=== PATIENT | female | born 1945 | race Caucasian/White ===

== ENCOUNTER 2019-06-11 19:40 | Observation (INO) ==
--- NOTE | 2019-06-11 20:01 | ED.ABDFE ---
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 Hx of PVD with stents, CAD stents,COPD, Hypertension. Recent cardiac cath 2 weeks ago but no intervention needed. Been using a [employer] to get around since Cardiac cath. - COVID-19 Coronavirus risk:travel/contact w/high risk person: No Has patient experienced Coronavirus symptoms: No - Source History Provided: Patient - Mode of arrival Mode of Arrival: EMS - Timing Came on: Suddenly - Duration Duration: Constant Duration: Minutes - Location Location: Periumbilical - Severity Severity: Moderate - Quality Quality: Burning - Modifying Improving Factors: Lying Still - Associated signs and symptoms Associated Signs and Symptoms: Diarrhea - Time seen Time Seen by Provider: 06/11/19 19:50 PMH - PMH Past Medical History: COPD, Coronary Artery Disease, Dyslipidemia, Hypertension Past Surgical History: Yes Surgical History: Appendectomy, Cholecystectomy, Hysterectomy, Ortho Surgery - Family History Family Medical History: Diabetes Mellitus, Cancer, Coronary Artery Disease, Heart Failure, Hypertension - Social History Does patient currently use any type of tobacco product: Yes Have you used tobacco products in the last 12 months: Yes Type of Tobacco Use: Cigarettes Do you use any recreational Drugs:: No ROS - Review of Systems Constitutional: No Symptoms Reported Eyes: No Symptoms Reported ENTM: No Symptoms Reported Respiratoy: No Symptoms Reported Cardiovascular: No Symptoms Reported Gastrointestinal/Abdominal: Abdominal Pain, Diarrhea Genitourinary: No Symptoms Reported Neurological: No Symptoms Reported Musculoskeletal: No Symptoms Reported Integumentary: No Symptoms Reported Hematologic/Lymphatic: No Symptoms Reported Endocrine: No Symptoms Reported Psychiatric: Depression All Other Systems: Reviewed and Negative PE - General Limitations: No Limitations General Appearance: Alert, In No Apparent Distress - Head Head Exam: Normal Inspection - Eyes Eye exam: Normal Appearance, PERRL, EOMI - ENT ENT Exam: Normal Exam - Neck Neck Exam: Normal Inspection - Chest Chest Inspection: Normal Inspection - Respiratory Respiratory Exam: Normal Lung Sounds Bilat Respiratory Exam: Bilateral Clear to Auscultation - Cardiovascular Cardiovascular Exam: Regular Rate - Abdominal Exam Abdominal Exam: Normal Inspection, Normal Bowel Sounds, Soft, Tenderness (epigastric). negative: Distention, Guarding Abdominal Tenderness: Epigastrium - Rectal Rectal Exam: Deferred - Back Back Exam: Normal Inspection - Extremeties Extremities Exam: Normal Inspection, Full ROM - External Exam: Female: Deferred : Speculum Exam (Female): Deferred : Bimanual Exam (female): Deferred - Neurologic Neurological Exam: Alert, Oriented X3, CN II-XII Intact - Psychiatric Psychiatric Exam: Depressed - Skin Skin Exam: Intact, Normal Color - Vital Signs Vitals: Temperature 96.9 F Pulse Rate 83 Respiratory Rate 18 Blood Pressure [Left Arm] 132/70 Blood Pressure [Right Arm] 126/58 Blood Pressure 98/53 O2 Sat by Pulse Oximetry 94 Course - Treatment Treatment: 2049: patient wanting to sign out to go to [facility], wanted something for dyspnea (after Nebulizer) sats good, wanted something done for her leg pain from cardiac cath a few days ago. Labs came back and unable to get CT with contrast due to renal functions. Ultrasound apparently not available here will try to transfer to [facility] where her cardiac cath was done. 0015: ultrasound came in to do aorta but not right femoral Ultrasound. If aorta stable will admit for Ultrasound in am as well as diarrhea with elevated WBC. 0100: case discussed with Chaka Galaviz observation ROR - Labs Reviewed Result Diagrams: 06/11/19 20:18 06/11/19 20:18 - XRAY XRAY Interpreted by: Radiologist - Labs Reviewed Laboratory: WBC 16.8 X10^3/uL (3.6-10.0) H 06/11/19 20:18 RBC 4.69 X10^6/uL (3.5-5.4) 06/11/19 20:18 Hgb 15.0 g/dL (12.0-16.0) 06/11/19 20:18 Hct 42.7 % (36.0-47.0) 06/11/19 20:18 MCV 91.1 fL (80.0-100.0) 06/11/19 20:18 MCH 31.9 pg (27.0-34.0) 06/11/19 20: MCHC 35.1 g/dL (33.0-35.0) H 06/11/19 20:18 RDW 13.4 % (11.6-16.5) 06/11/19 20:18 Plt Count 289 X10^3/uL (150.0-450.0) 06/11/19 20: Plt Count Comment Adequate (ADEQUATE) 06/11/19 20:18 MPV 8.2 fL (7.4-11.0) 06/11/19 20:18 Neut % (Auto) 92.2 % (42.0-75.0) H 06/11/19 20:18 Lymph % (Auto) 5.0 % (21.0-51.0) L 06/11/19 20:18 Yates % (Auto) 0.4 % (0.0-13.0) 06/11/19 20:18 Eos % (Auto) 1.8 % (0.9-2.9) 06/11/19 20:18 Baso % (Auto) 0.6 % (0.2-1.0) 06/11/19 20:18 Neut # (Auto) 15.5 x10^3/uL (2.2-4.8) H 06/11/19 20:18 Lymph # (Auto) 0.8 X10^3/uL (1.3-2.9) L 06/11/19 20:18 Yates # (Auto) 0.1 x10^3/uL (0.3-0.8) L 06/11/19 20:18 Eos # (Auto) 0.3 x10^3/uL (0.0-0.2) H 06/11/19 20:18 Baso # (Auto) 0.1 X10^3/uL (0.0-0.1) 06/11/19 20:18 Absolute Nucleated RBC 0.0 /100WBC 06/11/19 20:18 Total Counted 100 06/11/19 20:18 Neutrophils % (Manual) 90 % (39-76) H 06/11/19 20:18 Band Neutrophils % 4 % (0-10) 06/11/19 20:18 Lymphocytes % (Manual) 4 % (13-43) L 06/11/19 20:18 Monocytes % (Manual) 2 % (4-9) L 06/11/19 20:18 Plt Morphology Comment Normal (NORMAL) 06/11/19 20:18 RBC Morphology Normal (NORMAL) 06/11/19 20:18 Sodium 139 mmol/L (136-145) 06/11/19 20:18 Corrected Sodium 140 mmol/L (136-145) 06/11/19 20:18 Potassium 3.6 mmol/L (3.5-5.1) 06/11/19 20:18 Chloride 101 mmol/L (98-107) 06/11/19 20:18 Carbon Dioxide 26.7 mmol/L (21-32) 06/11/19 20:18 BUN 27 mg/dL (7-18) H 06/11/19 20:18 Creatinine 1.45 mg/dL (0.55-1.02) H 06/11/19 20:18 Est GFR (MDRD) Af Amer 46 (>60) L 06/11/19 20:18 Est GFR (MDRD) Non-Af 38 (>60) L 06/11/19 20:18 Glucose 133 mg/dL (65-99) H 06/11/19 20:18 Calcium 8.9 mg/dL (8.5-10.1) 06/11/19 20:18 Corrected Calcium TNP 06/11/19 20:18 Total Bilirubin 0.40 mg/dL (0.2-1.0) 06/11/19 20:18 AST 12 Units/L (15-37) L 06/11/19 20:18 ALT 16 Units/L (12-78) 06/11/19 20:18 Alkaline Phosphatase 83 Units/L (46-116) 06/11/19 20:18 Creatine Kinase 67 Units/L (26-192) 06/11/19 20:18 CK-MB (CK-2) < 1.0 ng/mL (0-4.0) 06/11/19 20:18 CK/CKMB % Calc 1.5 % (<4) 06/11/19 20:18 Troponin I < 0.02 ng/mL (0-1.5) 06/11/19 20:18 Total Protein 7.2 g/dL (6.4-8.2) 06/11/19 20:18 Albumin 3.7 g/dL (3.4-5.0) 06/11/19 20:18 Globulin 3.5 g/dL (2.5-4.5) 06/11/19 20:18 Albumin/Globulin Ratio 1.1 Ratio (1.1-2.1) 06/11/19 20:18 - XRAY Xray Findings: Aortic ultra sound: IMPRESSION Infrarenal abdominal aortic ectasia, measuring maximally 3.5 centimeters transversely, although positioning of the transition may be accentuating this, as other measurements show a maximum AP diameter of 2.5 centimeters. No evidence of dissection seen sonographically. Follow-up with vascular surgery in surveillance as indicated. (ELISEO SOARES) Opioid - Opioid Risk Tool Age (Eliseo box if 16-45): No History of Preadolescent Sexual Abuse: No Total: 0 Total Score Risk Category: Low Risk - Diagnosis Discharge Problem: Postprocedural pain of extremity following cardiac catheterization Abdominal pain Qualifiers: Abdominal location: periumbilical Qualified Code(s): R10.33 - Periumbilical pain Diarrhea Qualifiers: Diarrhea type: unspecified type Qualified Code(s): R19.7 - Diarrhea, unspecified - Discharge Plan Condition: Stable - Follow ups/Referrals Follow ups/Referrals: SHAUN BURT [Primary Care Provider] - 3 days - Instructions
[2019-06-11 20:03] VITALS: BMI 23.5
[2019-06-11] MEDS ORDERED: NS 500 ML IV 1,000 ML IV ONE (20:05)
[2019-06-11] MEDS ORDERED: XOPENEX 1.25 MG/3 ML NEBULE NEB ONE (20:28)
[2019-06-11 20:32] LABS: BASOPHILS # (AUTO) 0.1 X10^3/uL (0.0-0.1); BASOPHILS % (AUTO) 0.6 % (0.2-1.0); EOSINOPHILS # (AUTO) 0.3 x10^3/uL (0.0-0.2); EOSINOPHILS % (AUTO) 1.8 % (0.9-2.9); HEMATOCRIT 42.7 % (36.0-47.0); LYMPHOCYTES # (AUTO) 0.8 X10^3/uL (1.3-2.9); MEAN CORPUSCULAR HEMOGLOBIN 31.9 pg (27.0-34.0); MEAN CORPUSCULAR HGB CONC 35.1 g/dL (33.0-35.0); MEAN CORPUSCULAR VOLUME 91.1 fL (80.0-100.0); MEAN PLATELET VOLUME 8.2 fL (7.4-11.0); MONOCYTES # (AUTO) 0.1 x10^3/uL (0.3-0.8); MONOCYTES % (AUTO) 0.4 % (0.0-13.0); NEUTROPHILS # (AUTO) 15.5 x10^3/uL (2.2-4.8); NEUTROPHILS % (AUTO) 92.2 % (42.0-75.0); PLATELET COUNT 289 X10^3/uL (150.0-450.0); RED BLOOD COUNT 4.69 X10^6/uL (3.5-5.4); RED CELL DISTRIBUTION WIDTH 13.4 % (11.6-16.5); WHITE BLOOD COUNT 16.8 X10^3/uL (3.6-10.0)
[2019-06-11 20:46] LABS: BLOOD UREA NITROGEN 27 mg/dL (7-18); CALCIUM 8.9 mg/dL (8.5-10.1); CARBON DIOXIDE 26.7 mmol/L (21-32); CHLORIDE 101 mmol/L (98-107); COR NA(FOR HYPERGLY) 140 mmol/L (136-145); CREATININE 1.45 mg/dL (0.55-1.02); SODIUM 139 mmol/L (136-145); TROPONIN I < 0.02 ng/mL (0-1.5); eGFR NON BLACK RACES 38 (>60)
[2019-06-11 20:51] LABS: ALANINE AMINOTRANSFERASE 16 Units/L (12-78); ALBUMIN 3.7 g/dL (3.4-5.0); ALKALINE PHOSPHATASE 83 Units/L (46-116); ASPARTATE AMINO TRANSFERASE 12 Units/L (15-37); CKMB % 1.5 % (<4); CREATINE KINASE 67 Units/L (26-192); CREATINE KINASE MB < 1.0 ng/mL (0-4.0); TOTAL PROTEIN 7.2 g/dL (6.4-8.2)
[2019-06-11 20:54] LABS: BAND NEUTROPHILS % 4 % (0-10); PLATELET MORPHOLOGY COMMENT NORMAL (NORMAL)
[2019-06-11] MEDS ORDERED: TORADOL 60 MG VIAL IVP ONE (21:03)
[2019-06-11] MEDS ORDERED: TORADOL 30 MG VIAL ONE (21:15)
--- NOTE | 2019-06-12 00:43 | US ---
Ultrasound abdomen aortaIndication: History of aortic aneurysmCOMPARISONRadiograph from the same day. CT angiogram chest from April 21, 2019Technique: Dynamic grayscale, color and spectral Doppler imaging through the abdomen, focusing on the aortaFINDINGSMeasurements are as follows:Aorta proximal: 1.8 x 2.3 centimeters (AP, trans)Aorta mid: 2.0 x 2.5 centimeters (AP, trans)Aorta distal 2.5 by 2.5 to 3.5 centimeters (AP, trans). The transverse diameter shows variability depending on positioning of the transducer. No dissection is seen.Study is moderately technically limited due to bowel gas.IMPRESSIONInfrarenal abdominal aortic ectasia, measuring maximally 3.5 centimeters transversely, although positioning of the transition may be accentuating this, as other measurements show a maximum AP diameter of 2.5 centimeters. No evidence of dissection seen sonographically. Follow-up with vascular surgery in surveillance as indicated.Electronically signed by: CLEOPATRA BRO (June 12, 2019 00:42:01)
[2019-06-12] MEDS ORDERED: DEMEROL INJ IVP PRN ×2 (01:08→09:33)
[2019-06-12] MEDS ORDERED: PROVENTIL NEB TX 0.083% 2.5MG/ 3ML NEB PRN (01:14)
[2019-06-12] MEDS ORDERED: DEMEROL INJ IVP ONE (01:37)
[2019-06-12] MEDS ORDERED: DEMEROL INJ ONE (01:43)
[2019-06-12] MEDS ORDERED: NICOTINE PATCH TD ONE (02:12)
[2019-06-12] MEDS: NICOTINE PATCH TD SCH ×2 (02:30→09:21)
[2019-06-12 03:07] LABS: BILIRUBIN,URINE NEGATIVE (NEGATIVE); BLOOD/HEMOGLOBIN,URINE 1+ (NEGATIVE); GLUCOSE, URINE NEGATIVE (NEGATIVE); KETONES,URINE NEGATIVE (NEGATIVE); LEUKOCYTE ESTERASE ,URINE 1+ (NEGATIVE); NITRITES,URINE NEGATIVE (NEGATIVE); PROTEIN,URINE 1+ (NEGATIVE); UROBILINOGEN,URINE 1+ (NORMAL)
[2019-06-12 03:10] LABS: APPEARANCE,URINE CLEAR (CLEAR); BACTERIA,URINE TRACE /HPF (NEGATIVE); COLOR,URINE YELLOW (YELLOW); HYALINE CASTS, URINE FEW /LPF (NEGATIVE); RBC,URINE NONE SEEN /HPF (0-3); SQUAMOUS EPITHELIAL CELL,UR FEW /HPF (NEGATIVE)
[2019-06-12 03:11] LABS: MUCUS,URINE FEW /HPF (NEGATIVE)
[2019-06-12 05:10] LABS: BASOPHILS % (AUTO) 0.1 % (0.2-1.0); EOSINOPHILS % (AUTO) 0.1 % (0.9-2.9); HEMATOCRIT 37.2 % (36.0-47.0); LYMPHOCYTES % (AUTO) 7.1 % (21.0-51.0); MEAN CORPUSCULAR HEMOGLOBIN 31.8 pg (27.0-34.0); MEAN CORPUSCULAR HGB CONC 34.8 g/dL (33.0-35.0); MEAN CORPUSCULAR VOLUME 91.4 fL (80.0-100.0); MEAN PLATELET VOLUME 8.9 fL (7.4-11.0); MONOCYTES # (AUTO) 0.7 x10^3/uL (0.3-0.8); MONOCYTES % (AUTO) 4.8 % (0.0-13.0); NEUTROPHILS # (AUTO) 11.9 x10^3/uL (2.2-4.8); NEUTROPHILS % (AUTO) 87.9 % (42.0-75.0); PLATELET COUNT 229 X10^3/uL (150.0-450.0); RED BLOOD COUNT 4.07 X10^6/uL (3.5-5.4); RED CELL DISTRIBUTION WIDTH 13.1 % (11.6-16.5); WHITE BLOOD COUNT 13.6 X10^3/uL (3.6-10.0)
[2019-06-12 05:12] LABS: CALCIUM 8.4 mg/dL (8.5-10.1); CARBON DIOXIDE 26.3 mmol/L (21-32); CREATININE 1.51 mg/dL (0.55-1.02)
[2019-06-12 05:21] LABS: HEMOGLOBIN 12.9 g/dL (12.0-16.0)
[2019-06-12 08:32] LABS: MAGNESIUM 1.9 mg/dL (1.7-2.9)
--- NOTE | 2019-06-12 08:33 | DR.H&P ---
H&P History & Physical for Day of: H&P Date: 06/12/19 Allergies Allergies Allergy/AdvReac Type Severity Reaction Status Date / Time codeine AdvReac Verified 06/12/19 02:47 Past Medical History Past Medical History: COPD, Coronary Artery Disease, Dyslipidemia and Hypertension Past Surgical History Surgical History: Angioplasty/Stents, Appendectomy, Cholecystectomy, Hysterectomy and Ortho Surgery Family History Family Medical History: Diabetes Mellitus, Cancer, Coronary Artery Disease, Heart Failure and Hypertension Social History Does patient currently use any type of tobacco product: Yes Have you used tobacco products in the last 12 months: Yes Type of Tobacco Use: Cigarettes Does any household member use tobacco: No Alcohol Use: None Drug Use: None Medications Home Medications: codeine Adverse Reaction (Verified 06/12/19 02:47) CONTINUE taking the following medications albuterol sulfate 1 inh INHALATION PRN PRN 06/11/19 [History] ezetimibe 10 mg PO DAILY 06/11/19 [History] fluticasone propion-salmeterol 1 inh INHALATION DAILY 06/11/19 [History] lisinopril 5 mg PO DAILY 06/11/19 [History] metoprolol succinate 25 mg PO DAILY 06/11/19 [History] omeprazole 40 mg PO DAILY 06/11/19 [History] sucralfate 1 g PO TID 06/11/19 [History] tramadol 50 mg PO TID 06/11/19 [History] Labs Result Diagrams: 06/12/19 04:05 06/12/19 04:05 Labs: Laboratory WBC 13.6 X10^3/uL (3.6-10.0) H 06/12/19 04:05 RBC 4.07 X10^6/uL (3.5-5.4) 06/12/19 04:05 Hgb 12.9 g/dL (12.0-16.0) D 06/12/19 04:05 Hct 37.2 % (36.0-47.0) 06/12/19 04:05 MCV 91.4 fL (80.0-100.0) 06/12/19 04:05 MCH 31.8 pg (27.0-34.0) 06/12/19 04:05 MCHC 34.8 g/dL (33.0-35.0) 06/12/19 04:05 RDW 13.1 % (11.6-16.5) 06/12/19 04:05 Plt Count 229 X10^3/uL (150.0-450.0) 06/12/19 04:05 Plt Count Comment Adequate (ADEQUATE) 06/11/19 20:18 MPV 8.9 fL (7.4-11.0) 06/12/19 04:05 Neut % (Auto) 87.9 % (42.0-75.0) H 06/12/19 04:05 Lymph % (Auto) 7.1 % (21.0-51.0) L 06/12/19 04:05 Rowan % (Auto) 4.8 % (0.0-13.0) 06/12/19 04:05 Eos % (Auto) 0.1 % (0.9-2.9) L 06/12/19 04:05 Baso % (Auto) 0.1 % (0.2-1.0) L 06/12/19 04:05 Neut # (Auto) 11.9 x10^3/uL (2.2-4.8) H 06/12/19 04:05 Lymph # (Auto) 1.0 X10^3/uL (1.3-2.9) L 06/12/19 04:05 Rowan # (Auto) 0.7 x10^3/uL (0.3-0.8) 06/12/19 04:05 Eos # (Auto) 0.0 x10^3/uL (0.0-0.2) 06/12/19 04:05 Baso # (Auto) 0.0 X10^3/uL (0.0-0.1) 06/12/19 04:05 Absolute Nucleated RBC 0.0 /100WBC 06/12/19 04:05 Total Counted 100 06/11/19 20:18 Neutrophils % (Manual) 90 % (39-76) H 06/11/19 20:18 Band Neutrophils % 4 % (0-10) 06/11/19 20:18 Lymphocytes % (Manual) 4 % (13-43) L 06/11/19 20:18 Monocytes % (Manual) 2 % (4-9) L 06/11/19 20:18 Plt Morphology Comment Normal (NORMAL) 06/11/19 20:18 RBC Morphology Normal (NORMAL) 06/11/19 20:18 Sodium 138 mmol/L (136-145) 06/12/19 04:05 Corrected Sodium 139 mmol/L (136-145) 06/12/19 04:05 Potassium 4.4 mmol/L (3.5-5.1) 06/12/19 04:05 Chloride 103 mmol/L (98-107) 06/12/19 04:05 Carbon Dioxide 26.3 mmol/L (21-32) 06/12/19 04:05 BUN 32 mg/dL (7-18) H 06/12/19 04:05 Creatinine 1.51 mg/dL (0.55-1.02) H 06/12/19 04:05 Est GFR (MDRD) Af Amer 44 (>60) L 06/12/19 04:05 Est GFR (MDRD) Non-Af 36 (>60) L 06/12/19 04:05 Glucose 134 mg/dL (65-99) H 06/12/19 04:05 Calcium 8.4 mg/dL (8.5-10.1) L 06/12/19 04:05 Corrected Calcium TNP 06/11/19 20:18 Total Bilirubin 0.40 mg/dL (0.2-1.0) 06/11/19 20:18 AST 12 Units/L (15-37) L 06/11/19 20:18 ALT 16 Units/L (12-78) 06/11/19 20:18 Alkaline Phosphatase 83 Units/L (46-116) 06/11/19 20:18 Creatine Kinase 67 Units/L (26-192) 06/11/19 20:18 CK-MB (CK-2) < 1.0 ng/mL (0-4.0) 06/11/19 20:18 CK/CKMB % Calc 1.5 % (<4) 06/11/19 20:18 Troponin I < 0.02 ng/mL (0-1.5) 06/11/19 20:18 Total Protein 7.2 g/dL (6.4-8.2) 06/11/19 20:18 Albumin 3.7 g/dL (3.4-5.0) 06/11/19 20:18 Globulin 3.5 g/dL (2.5-4.5) 06/11/19 20:18 Albumin/Globulin Ratio 1.1 Ratio (1.1-2.1) 06/11/19 20:18 Specimen Type Clean catch urine 06/12/19 02:25 Urine Color Yellow (YELLOW) 06/12/19 02:25 Urine Appearance Clear (CLEAR) 06/12/19 02:25 Urine pH 5.0 (5.0 - 8.0) 06/12/19 02:25 Ur Specific [place] 1.015 (1.000-1.030) 06/12/19 02:25 Urine Protein 1+ (NEGATIVE) 06/12/19 02:25 Urine Glucose (UA) Negative (NEGATIVE) 06/12/19 02:25 Urine Ketones Negative (NEGATIVE) 06/12/19 02:25 Urine Occult Blood 1+ (NEGATIVE) 06/12/19 02:25 Urine Nitrite Negative (NEGATIVE) 06/12/19 02:25 Urine Bilirubin Negative (NEGATIVE) 06/12/19 02:25 Urine Urobilinogen 1+ (NORMAL) 06/12/19 02:25 Ur Leukocyte Esterase 1+ (NEGATIVE) 06/12/19 02:25 Urine RBC None seen /HPF (0-3) 06/12/19 02:25 Urine WBC 0-2 /HPF (0-5) 06/12/19 02:25 Ur Squamous Epith Cells Few /HPF (NEGATIVE) 06/12/19 02:25 Urine Bacteria Trace /HPF (NEGATIVE) 06/12/19 02:25 Hyaline Casts Few /LPF (NEGATIVE) 06/12/19 02:25 Urine Mucus Few /HPF (NEGATIVE) 06/12/19 02:25 Ur Culture Indicated? No/not indicated 06/12/19 02:25 Physical Exam Vital Signs: Temperature 98.1 F Pulse Rate [Left Brachial] 95 Pulse Rate 83 Respiratory Rate 18 Blood Pressure [Left Arm] 103/62 Blood Pressure [Right Arm] 126/58 Blood Pressure 98/53 O2 Sat by Pulse Oximetry 99
[2019-06-12] MEDS ORDERED: PLAVIX PO SCH (09:00)
[2019-06-12] MEDS ORDERED: PriLOSEC PO SCH (09:00)
[2019-06-12] MEDS ORDERED: ULTRAM PO SCH (09:00)
[2019-06-12] MEDS ORDERED: NS 1000 ML 1,000 ML IV SCH (09:00)
[2019-06-12] MEDS ORDERED: TOPROL XL PO SCH (09:00)
[2019-06-12] MEDS ORDERED: CARAFATE PO SCH (09:00)
[2019-06-12] MEDS ORDERED: ZETIA TAB 10 MG PO SCH (09:00)
--- NOTE | 2019-06-12 09:31 | US ---
HISTORYRight groin painSTUDYRight lower extremity arterial Doppler evaluationTechnique: Multiple grayscale sonographic images were obtained. Color duplex Doppler evaluation was performed.COMPARISONNoneFINDINGSThrombus is identified in the right common femoral artery which is nearly completely occlusion of. Flow is identified in the superficial femoral artery and proximal popliteal artery although velocities are decreased and there are monophasic waveforms present. CTA and expedient vascular surgery evaluation is recommended.IMPRESSIONThrombosis of the right common femoral artery which is nearly completely occlusive.Decreased velocities in the superficial femoral artery and popliteal arteries.Recommendation: Expedient vascular surgery evaluation, CTAElectronically signed by: TREV ANGUIANO (June 12, 2019 09:30:07)
--- NOTE | 2019-06-12 10:56 | DR.SSS ---
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 Chief Complaint Chief Complaint: Right groin pain Abdominal pain History of Present Illness History of Present Illness: Pt is a 73 yo f pmhx COPD, HTN, COPD, CAD, PVD(w/ stents) presenting complaining of right groin pain, abdominal pain, diarrhea for the past week. Recent cardiac catheter 2 weeks ago and groin pain since. She was referred to specialist in [place] for possible intervention of right femoral thrombosis but no procedure performed. Pain has been gradually worsening. Past Medical History Past Medical History: COPD, Coronary Artery Disease, Dyslipidemia and Hypertension Past Surgical History Surgical History: Angioplasty/Stents, Appendectomy, Cholecystectomy, Hysterectomy and Ortho Surgery Allergies Allergies Allergy/AdvReac Type Severity Reaction Status Date / Time codeine AdvReac Verified 06/12/19 02:47 Medications Home Medications: codeine Adverse Reaction (Verified 06/12/19 02:47) CONTINUE taking the following medications albuterol sulfate 1 inh INHALATION PRN PRN 06/11/19 [History] ezetimibe 10 mg PO DAILY 06/11/19 [History] fluticasone propion-salmeterol 1 inh INHALATION DAILY 06/11/19 [History] lisinopril 5 mg PO DAILY 06/11/19 [History] metoprolol succinate 25 mg PO DAILY 06/11/19 [History] omeprazole 40 mg PO DAILY 06/11/19 [History] sucralfate 1 g PO TID 06/11/19 [History] tramadol 50 mg PO TID 06/11/19 [History] Family History Family Medical History: Diabetes Mellitus, Cancer, Coronary Artery Disease, Heart Failure and Hypertension Social History Does patient currently use any type of tobacco product: Yes Have you used tobacco products in the last 12 months: Yes Type of Tobacco Use: Cigarettes Does any household member use tobacco: No Alcohol Use: None Drug Use: None Review of Systems Constitutional: denies Fever and Chills Eyes: No Symptoms Reported ENT: No Symptoms Reported Respiratory: No Symptoms Reported Cardiovascular: No Symptoms Reported Gastrointestinal: Nausea, Abdominal Pain and Diarrhea; denies Vomiting and Constipation Genitourinary: No Symptoms Reported Musculoskeletal: Leg Pain (Right medial proximal ) Skin: No Symptoms Reported Neurological: No Symptoms Reported Physical Exam Vital Signs: Last Vital Signs Temp 98.1 F 06/12/19 07:48 Pulse 95 H 06/12/19 07:48 Resp 18 06/12/19 10:21 BP 103/62 06/12/19 07:48 Pulse Ox 99 06/12/19 07:48 Oriented: Normal Eyes: Normal Ear: Normal Nose: Normal Respiratory: Clear Throughout Cardiovascular: Normal Auscultation: Bowel Sounds: Normal Palpation: Normal Tenderness: RLQ, Epigastric and Moderate Skin: Normal Musculoskeletal: Pulse Deficit (Distal RLE) Psychiatric: Normal Speech Pattern: Clear Labs Labs: Laboratory Last Values WBC 13.6 X10^3/uL (3.6-10.0) H 06/12/19 04:05 RBC 4.07 X10^6/uL (3.5-5.4) 06/12/19 04:05 Hgb 12.9 g/dL (12.0-16.0) D 06/12/19 04:05 Hct 37.2 % (36.0-47.0) 06/12/19 04:05 MCV 91.4 fL (80.0-100.0) 06/12/19 04:05 MCH 31.8 pg (27.0-34.0) 06/12/19 04:05 MCHC 34.8 g/dL (33.0-35.0) 06/12/19 04:05 RDW 13.1 % (11.6-16.5) 06/12/19 04:05 Plt Count 229 X10^3/uL (150.0-450.0) 06/12/19 04:05 Plt Count Comment Adequate (ADEQUATE) 06/11/19 20:18 MPV 8.9 fL (7.4-11.0) 06/12/19 04:05 Neut % (Auto) 87.9 % (42.0-75.0) H 06/12/19 04:05 Lymph % (Auto) 7.1 % (21.0-51.0) L 06/12/19 04:05 [place] % (Auto) 4.8 % (0.0-13.0) 06/12/19 04:05 Eos % (Auto) 0.1 % (0.9-2.9) L 06/12/19 04:05 Baso % (Auto) 0.1 % (0.2-1.0) L 06/12/19 04:05 Neut # (Auto) 11.9 x10^3/uL (2.2-4.8) H 06/12/19 04:05 Lymph # (Auto) 1.0 X10^3/uL (1.3-2.9) L 06/12/19 04:05 [place] # (Auto) 0.7 x10^3/uL (0.3-0.8) 06/12/19 04:05 Eos # (Auto) 0.0 x10^3/uL (0.0-0.2) 06/12/19 04:05 Baso # (Auto) 0.0 X10^3/uL (0.0-0.1) 06/12/19 04:05 Absolute Nucleated RBC 0.0 /100WBC 06/12/19 04:05 Total Counted 100 06/11/19 20:18 Neutrophils % (Manual) 90 % (39-76) H 06/11/19 20:18 Band Neutrophils % 4 % (0-10) 06/11/19 20:18 Lymphocytes % (Manual) 4 % (13-43) L 06/11/19 20:18 Monocytes % (Manual) 2 % (4-9) L 06/11/19 20:18 Plt Morphology Comment Normal (NORMAL) 06/11/19 20:18 RBC Morphology Normal (NORMAL) 06/11/19 20:18 Sodium 138 mmol/L (136-145) 06/12/19 04:05 Corrected Sodium 139 mmol/L (136-145) 06/12/19 04:05 Potassium 4.4 mmol/L (3.5-5.1) 06/12/19 04:05 Chloride 103 mmol/L (98-107) 06/12/19 04:05 Carbon Dioxide 26.3 mmol/L (21-32) 06/12/19 04:05 BUN 32 mg/dL (7-18) H 06/12/19 04:05 Creatinine 1.51 mg/dL (0.55-1.02) H 06/12/19 04:05 Est GFR (MDRD) Af Amer 44 (>60) L 05/06/20 04:05 Est GFR (MDRD) Non-Af 36 (>60) L 06/12/19 04:05 Glucose 134 mg/dL (65-99) H 06/12/19 04:05 Calcium 8.4 mg/dL (8.5-10.1) L 06/12/19 04:05 Corrected Calcium TNP 06/11/19 20:18 Magnesium 1.9 mg/dL (1.7-2.9) 06/12/19 04:05 Total Bilirubin 0.40 mg/dL (0.2-1.0) 06/11/19 20:18 AST 12 Units/L (15-37) L 06/11/19 20:18 ALT 16 Units/L (12-78) 06/11/19 20:18 Alkaline Phosphatase 83 Units/L (46-116) 06/11/19 20:18 Creatine Kinase 67 Units/L (26-192) 06/11/19 20:18 CK-MB (CK-2) < 1.0 ng/mL (0-4.0) 06/11/19 20:18 CK/CKMB % Calc 1.5 % (<4) 06/11/19 20:18 Troponin I < 0.02 ng/mL (0-1.5) 06/11/19 20:18 Total Protein 7.2 g/dL (6.4-8.2) 06/11/19 20:18 Albumin 3.7 g/dL (3.4-5.0) 06/11/19 20:18 Globulin 3.5 g/dL (2.5-4.5) 06/11/19 20:18 Albumin/Globulin Ratio 1.1 Ratio (1.1-2.1) 06/11/19 20:18 Lipase 51 Units/L (73-393) L 06/12/19 04:05 Specimen Type Clean catch urine 06/12/19 02:25 Urine Color Yellow (YELLOW) 06/12/19 02:25 Urine Appearance Clear (CLEAR) 06/12/19 02:25 Urine pH 5.0 (5.0 - 8.0) 06/12/19 02:25 Ur Specific [place] 1.015 (1.000-1.030) 06/12/19 02:25 Urine Protein 1+ (NEGATIVE) 06/12/19 02:25 Urine Glucose (UA) Negative (NEGATIVE) 06/12/19 02:25 Urine Ketones Negative (NEGATIVE) 06/12/19 02:25 Urine Occult Blood 1+ (NEGATIVE) 06/12/19 02:25 Urine Nitrite Negative (NEGATIVE) 06/12/19 02:25 Urine Bilirubin Negative (NEGATIVE) 06/12/19 02:25 Urine Urobilinogen 1+ (NORMAL) 06/12/19 02:25 Ur Leukocyte Esterase 1+ (NEGATIVE) 06/12/19 02:25 Urine RBC None seen /HPF (0-3) 06/12/19 02:25 Urine WBC 0-2 /HPF (0-5) 06/12/19 02:25 Ur Squamous Epith Cells Few /HPF (NEGATIVE) 06/12/19 02:25 Urine Bacteria Trace /HPF (NEGATIVE) 06/12/19 02:25 Hyaline Casts Few /LPF (NEGATIVE) 06/12/19 02:25 Urine Mucus Few /HPF (NEGATIVE) 06/12/19 02:25 Ur Culture Indicated? No/not indicated 06/12/19 02:25 Assessment/Plan (1) Thrombosis of right femoral artery: 1: Transfer to [facility] for vascular intervention. 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 Decreased velocities in the superficial femoral artery and popliteal arteries. Recommendation:Expedient vascular surgery evaluation, CTA. -Discussed with her data typist Dr Henriquez in [place], [place]. Recommends transfer for vascular intervention. Pt is stable, and was transferred to [facility]. Accepting hospitalist Dr Denis Yee. Discharge Medications Discharge Medications: Home Medication List albuterol sulfate 1 inh INHALATION PRN PRN 06/11/19 [History] ezetimibe 10 mg PO DAILY 06/11/19 [History] fluticasone propion-salmeterol 1 inh INHALATION DAILY 06/11/19 [History] lisinopril 5 mg PO DAILY 06/11/19 [History] metoprolol succinate 25 mg PO DAILY 06/11/19 [History] omeprazole 40 mg PO DAILY 06/11/19 [History] sucralfate 1 g PO TID 06/11/19 [History] tramadol 50 mg PO TID 06/11/19 [History] Prescriptions: Discharge Disposition Discharge Disposition: Transfer to [facility], [place]. [place]
[2019-06-12 12:25] VITALS: BP 90/51
== END 2019-06-12 12:15 | disposition short-term general hospital (02) ==
LOC: ER 19:41 → MED/SURG 19:41
PROVIDERS: ADMIT Family Medicine; ATTEND Family Medicine
DX: J44.9 Chronic obstructive pulmonary disease, unspecified; N17.9 Acute kidney failure, unspecified; M79.604 Pain in right leg; R10.31 Right lower quadrant pain; R19.7 Diarrhea, unspecified; I25.10 Atherosclerotic heart disease of native coronary artery without angina pectoris; I77.811 Abdominal aortic ectasia; Z95.820 Peripheral vascular angioplasty status with implants and grafts; I74.3 Embolism and thrombosis of arteries of the lower extremities; Z86.79 Personal history of other diseases of the circulatory system; R10.33 Periumbilical pain; E78.5 Hyperlipidemia, unspecified; G89.18 Other acute postprocedural pain; R20.0 Anesthesia of skin; I10 Essential (primary) hypertension; E86.0 Dehydration
CPT/HCPCS: 36415; 74022; 76770; 76882; 80048; 80053; 81001; 82550; 82553; 83690; 83735; 84484; 85025; 93926; 94640; 94760; 96365; 96374; 96375; 97162; 97166; 99284; A4216; G0378; J1885; J2175; J7030

== ENCOUNTER 2020-09-08 12:39 | Inpatient (IN) ==
--- NOTE | 2020-09-08 12:59 | DR.GENAD ---
HPI Time Seen Time Seen by Provider: 09/08/20 12:52 PCP Primary Care Physician: CHAN Complaint/Symptoms Chief Complaint Doctors Comments: 74 y/o female presents with illness. Started 2-3 weeks ago, had generalized weakness. Developed cough, nausea, vomiting, fever, chills. States she has had covid in the past. Sent in for IV fluids, CXR, per pt, not interested in staying. Chief Complaint:: PT. C/O WEAKNESS, DECREASED APPETITE, N/V, COUGH X 2 WEEKS. PT. ALSO REPORTS TO HAVING FEVER/CHILLS AT HOME. COVID-19 Coronavirus risk:travel/contact w/high risk person: No Has patient experienced Coronavirus symptoms: Yes Coronavirus symptoms experienced: Fever and Coughing Nurses notes reviewed Nurses Notes Review: Yes Source History Provided: Patient Mode of Arrival Mode of Arrival: Wheelchair Timing Onset of Chief Complaint: 08/25/20 Came on: Gradually Duration Duration: Since Onset Severity Severity: Moderate Modifying Factors Worsens:: exertion Improves:: rest PMH PMH Past Medical History: Yes Past Medical History: COPD, Coronary Artery Disease, Dyslipidemia and Hypertension Past Surgical History: Yes Surgical History: Angioplasty/Stents, Appendectomy, Cholecystectomy, Hystere ctomy and Ortho Surgery Family History History of Family Medical Conditions: Yes Family Medical History: Diabetes Mellitus, Cancer, Coronary Artery Disease, Heart Failure and Hypertension Social History Does patient currently use any type of tobacco product: Yes Have you used tobacco products in the last 12 months: Yes Type of Tobacco Use: Cigarettes Does any household member use tobacco: Yes Alcohol Use: None Do you use any recreational Drugs:: No Lives With: Family Lives Where: Home Travel Risk Coronavirus risk:travel/contact w/high risk person: No Has patient experienced Coronavirus symptoms: Yes Coronavirus symptoms experienced: Fever and Coughing Infectious screening In the last 2 months have you had wt loss of >10#?: NO Have you had fever, night sweats or hemotysis?: No Have you traveled outside the country in the last 6 months?: No Isolation: Droplet ROS Review of Systems Constitutional: Chills, Fever, Malaise and Weakness Eyes: No Symptoms Reported ENTM: No Symptoms Reported Respiratoy: Productive Cough and Short of Breath Cardiovascular: No Symptoms Reported; negative Chest Pain Gastrointestinal/Abdominal: Nausea and Vomiting Genitourinary: No Symptoms Reported Neurological: Weakness Musculoskeletal: No Symptoms Reported Integumentary: No Symptoms Reported Hematologic/Lymphatic: No Symptoms Reported Endocrine: No Symptoms Reported Psychiatric: No Symptoms Reported All Other Systems: Reviewed and Negative PE Vital Signs Vitals: Temperature 98.2 F Pulse Rate 93 Respiratory Rate 20 Blood Pressure [Left Arm] 142/63 Blood Pressure [Right Arm] 126/58 Blood Pressure 130/59 O2 Sat by Pulse Oximetry 95 General Limitations: No Limitations General Appearance: Alert and In No Apparent Distress Head Head Exam: Normal Inspection Eyes Eye exam: Normal Appearance ENT ENT Exam: Normal Exam Nose Exam: Normal Nose Exam Mouth Exam: Normal Inspection Neck Neck Exam: Normal Inspection and Full ROM Chest Chest Inspection: Normal Inspection Respiratory Respiratory Exam: negative Respiratory Distress Respiratory Exam: Bilateral: Wheezing (slight expiratory) Cardiovascular Cardiovascular Exam: Regular Rate, Normal Rhythm and Normal Heart Sounds Abdominal Exam Abdominal Exam: Normal Inspection and Normal Bowel Sounds; negative Tenderness Extremities Extremities Exam: Normal Inspection and Full ROM; negative Edema Back Back Exam: Normal Inspection Neurologic Neurological Exam: Alert, Oriented X3 and CN II-XII Intact; negative Motor Sensory Deficit Psychiatric Psychiatric Exam: Normal Affect Skin Skin Exam: Warm and Dry MDM Differential Diagnosis Differential Diagnosis: pneumonia, covid, copd, chf COURSE Treatment Treatment: 74 y/o ill over the past 2-3 weeks. Having cough with increasing dyspnea. Had covid last year. Is hypoxic. W/u initiated. Reevaluation 1st: Improved (on O2. Pulse ox 97%. pO2 on RA 56, wiht 92% sat. ) and Unchanged (1545 - discussed with hospitalist, Dr. Castillo, will admit. ) ROR Labs Reviewed Laboratory Results Reviewed?: Yes Result Diagrams: 09/08/20 13:10 09/08/20 13:10 Laboratory: WBC 3.2 X10^3/uL (3.6-10.0) L 09/08/20 13:10 RBC 4.68 X10^6/uL (3.5-5.4) 09/08/20 13:10 Hgb 14.9 g/dL (12.0-16.0) 09/08/20 13:10 Hct 41.8 % (36.0-47.0) 09/08/20 13:10 MCV 89.4 fL (80.0-100.0) 09/08/20 13:10 MCH 31.8 pg (27.0-34.0) 09/08/20 13:10 MCHC 35.6 g/dL (33.0-35.0) H 09/08/20 13:10 RDW 12.7 % (11.6-16.5) 09/08/20 13:10 Plt Count 176 X10^3/uL (150.0-450.0) 09/08/20 13:10 Plt Count Comment Adequate (ADEQUATE) 09/08/20 13:10 MPV 8.6 fL (7.4-11.0) 09/08/20 13:10 Neut % (Auto) 68.1 % (42.0-75.0) 09/08/20 13:10 Lymph % (Auto) 24.8 % (21.0-51.0) 09/08/20 13:10 [place] % (Auto) 6.8 % (0.0-13.0) 09/08/20 13:10 Eos % (Auto) 0.1 % (0.9-2.9) L 09/08/20 13:10 Baso % (Auto) 0.2 % (0.2-1.0) 09/08/20 13:10 Neut # (Auto) 2.2 x10^3/uL (2.2-4.8) 09/08/20 13:10 Lymph # (Auto) 0.8 X10^3/uL (1.3-2.9) L 09/08/20 13:10 [place] # (Auto) 0.2 x10^3/uL (0.3-0.8) L 09/08/20 13:10 Eos # (Auto) 0.0 x10^3/uL (0.0-0.2) 09/08/20 13:10 Baso # (Auto) 0.0 X10^3/uL (0.0-0.1) 09/08/20 13:10 Absolute Nucleated RBC 0.2 /100WBC 09/08/20 13:10 Plt Morphology Comment Normal (NORMAL) 09/08/20 13:10 RBC Morphology Normal (NORMAL) 09/08/20 13:10 Sample Site Lra 09/08/20 13:17 ABG pH 7.530 (7.35-7.45) H 09/08/20 13:17 ABG pCO2 33.0 mmHg (35.0-45.0) L 09/08/20 13:17 ABG pO2 56.0 mmHg (80.0-100.0) L 09/08/20 13:17 ABG HCO3 27.6 mmol/L (22-26) H 09/08/20 13:17 ABG O2 Saturation 92.0 % (90-100) 09/08/20 13:17 ABG Base Excess 5.0 mmol/L (-2.0-2.0) H 09/08/20 13:17 Krishan Test Pos 09/08/20 13:17 A-a Gradient 52.0 mmHg 09/08/20 13:17 FiO2 21.0 09/08/20 13:17 Blood Gas Comments Pt anshul well eb 09/08/20 13:17 Sodium 130 mmol/L (136-145) L 09/08/20 13:10 Corrected Sodium TNP 09/08/20 13:10 Potassium 3.5 mmol/L (3.5-5.1) 09/08/20 13:10 Chloride 92 mmol/L (98-107) L 09/08/20 13:10 Carbon Dioxide 24.6 mmol/L (21-32) 09/08/20 13:10 BUN 16 mg/dL (7-18) 09/08/20 13:10 Creatinine 0.88 mg/dL (0.55-1.02) 09/08/20 13:10 Est GFR (MDRD) Af Amer > 60 (>60) 09/08/20 13:10 Est GFR (MDRD) Non-Af > 60 (>60) 09/08/20 13:10 Glucose 108 mg/dL (65-99) H 09/08/20 13:10 Lactic Acid 0.8 mmol/L (0.4-2.0) 09/08/20 13:10 Calcium 8.7 mg/dL (8.5-10.1) 09/08/20 13:10 Corrected Calcium 9.3 mg/dL (8.5-10.1) 09/08/20 13:10 Total Bilirubin 0.70 mg/dL (0.2-1.0) 09/08/20 13:10 AST 77 Units/L (15-37) H 09/08/20 13:10 ALT 62 Units/L (12-78) 09/08/20 13:10 Alkaline Phosphatase 87 Units/L (46-116) 09/08/20 13:10 Creatine Kinase 352 Units/L (26-192) H 09/08/20 13:10 CK-MB (CK-2) 1.5 ng/mL (0-4.0) 09/08/20 13:10 CK/CKMB % Calc 0.4 % (<4) 09/08/20 13:10 Troponin I < 0.02 ng/mL (0-1.5) 09/08/20 13:10 B-Natriuretic Peptide 40.1 pg/mL (0-79) 09/08/20 13:10 Total Protein 7.0 g/dL (6.4-8.2) 09/08/20 13:10 Albumin 3.3 g/dL (3.4-5.0) L 09/08/20 13:10 Globulin 3.7 g/dL (2.5-4.5) 09/08/20 13:10 Albumin/Globulin Ratio 0.9 Ratio (1.1-2.1) L 09/08/20 13:10 Lipase 325 Units/L (73-393) 09/08/20 13:10 SARS-CoV-2 (PCR) Positive (NEGATIVE) A 09/08/20 13:45 Influenza Type A (PCR) Negative (NEGATIVE) 09/08/20 13:45 Influenza Type B (PCR) Negative (NEGATIVE) 09/08/20 13:45 RSV (PCR) Negative (NEGATIVE) 09/08/20 13:45 Other Results Comments: Sodium 130, WBC 3,200. + covid. XRAY XRAY Interpreted by: Radiologist X-ray Results: + left mid lung pneumonia. EKG Rate: 111 [place]: Normal Rhythm: ST Block: None Hypertrophy: None ST: Old and Ant Opioid Opioid Risk Tool Age (Alexys box if 16-45): No History of Preadolescent Sexual Abuse: No Total: 0 Total Score Risk Category: Low Risk Copyright: Ramon BERNAL predicting aberrant behaviors Diagnosis Discharge Problem: COVID-19 Pneumonia Qualifiers: Pneumonia type: due to unspecified organism
[2020-09-08 13:20] LABS: ABG HCO3 27.6 mmol/L (22-26)
[2020-09-08 13:21] LABS: ABG ALLEN TEST POS
--- NOTE | 2020-09-08 13:24 | RAD ---
HISTORYCOUGH, DYSPNEASTUDYCHEST, 1 [id number]/15/2020.TECHNIQUEAP view of the chestFINDINGSCardiac and mediastinal contours are within normal limits. Lungs are hyperexpanded with scattered lucencies. There is left peripheral midlung and lower lung airspace opacities and scattered right mid to lower lung interstitial opacities. No pleural effusion or pneumothorax.IMPRESSIONAirspace and interstitial opacities worst in the left mid lung suspicious for pneumonia. Background of COPD.Electronically signed by: Joseph Zimmerman (Sep 08, 2020 13:22:39)
[2020-09-08 14:06] LABS: BASOPHILS % (AUTO) 0.2 % (0.2-1.0); EOSINOPHILS % (AUTO) 0.1 % (0.9-2.9); HEMATOCRIT 41.8 % (36.0-47.0); HEMOGLOBIN 14.9 g/dL (12.0-16.0); LYMPHOCYTES # (AUTO) 0.8 X10^3/uL (1.3-2.9); LYMPHOCYTES % (AUTO) 24.8 % (21.0-51.0); MEAN CORPUSCULAR HEMOGLOBIN 31.8 pg (27.0-34.0); MEAN CORPUSCULAR HGB CONC 35.6 g/dL (33.0-35.0); MEAN CORPUSCULAR VOLUME 89.4 fL (80.0-100.0); MEAN PLATELET VOLUME 8.6 fL (7.4-11.0); MONOCYTES # (AUTO) 0.2 x10^3/uL (0.3-0.8); MONOCYTES % (AUTO) 6.8 % (0.0-13.0); NEUTROPHILS # (AUTO) 2.2 x10^3/uL (2.2-4.8); NEUTROPHILS % (AUTO) 68.1 % (42.0-75.0); PLATELET COUNT 176 X10^3/uL (150.0-450.0); RED BLOOD COUNT 4.68 X10^6/uL (3.5-5.4); RED CELL DISTRIBUTION WIDTH 12.7 % (11.6-16.5); WHITE BLOOD COUNT 3.2 X10^3/uL (3.6-10.0)
[2020-09-08 14:22] LABS: BLOOD UREA NITROGEN 16 mg/dL (7-18); CALCIUM 8.7 mg/dL (8.5-10.1); CARBON DIOXIDE 24.6 mmol/L (21-32); CHLORIDE 92 mmol/L (98-107); CREATININE 0.88 mg/dL (0.55-1.02); SODIUM 130 mmol/L (136-145); eGFR NON BLACK RACES > 60 (>60)
[2020-09-08 14:25] LABS: LACTIC ACID 0.8 mmol/L (0.4-2.0)
[2020-09-08] MEDS ORDERED: NS 500 ML IV 500 ML IV ONE ×2 (14:39→14:56)
[2020-09-08 15:03] LABS: PLATELET MORPHOLOGY COMMENT NORMAL (NORMAL)
[2020-09-08 15:20] LABS: CKMB % 0.4 % (<4); CREATINE KINASE 352 Units/L (26-192); CREATINE KINASE MB 1.5 ng/mL (0-4.0); LIPASE 325 Units/L (73-393); TROPONIN I < 0.02 ng/mL (0-1.5)
[2020-09-08 15:44] LABS: ALANINE AMINOTRANSFERASE 62 Units/L (12-78); ALBUMIN 3.3 g/dL (3.4-5.0); ALKALINE PHOSPHATASE 87 Units/L (46-116); ASPARTATE AMINO TRANSFERASE 77 Units/L (15-37); COR CA(FOR HYPOALB) 9.3 mg/dL (8.5-10.1)
[2020-09-08] MEDS ORDERED: NS 1000 ML 1,000 ML ONE (16:36)
[2020-09-08] MEDS: NS 1000 ML 1,000 ML IV SCH (16:48)
[2020-09-08 17:44] VITALS: BMI 22.4
[2020-09-08] MEDS ORDERED: IVERMECTIN PO SCH (21:00)
[2020-09-08] MEDS ORDERED: LOVENOX INJ 30 MG SYR SC SCH (21:00)
[2020-09-08] MEDS: BROVANA IN SCH (21:12)
[2020-09-08] MEDS: PULMICORT NEB TX 0.5 MG NEB SCH (21:22)
[2020-09-08] MEDS: PHARMACY CONSULT - IVERMECTIN XX SCH (21:24)
[2020-09-08] MEDS: ASCORBIC ACID INJ MULTI-DOSE VIAL 1,500 MG in NS 100 ML IV 100 ML IV SCH (21:24)
[2020-09-08] MEDS: PEPCID TAB 40 MG PO SCH (21:25)
[2020-09-08] MEDS: ZINC SULFATE PO SCH (21:25)
[2020-09-08] MEDS: IVERMECTIN PO SCH (21:25)
[2020-09-08] MEDS: MELATONIN PO SCH (21:25)
[2020-09-08] MEDS: SOLU-Medrol 40 MG VIAL IVP SCH (21:25)
[2020-09-08] MEDS: THIAMINE HCL INJ IVP SCH (21:26)
[2020-09-08] MEDS: VIBRAMYCIN 100 MG in D5W 250 ML IV 250 ML IV SCH (21:26)
[2020-09-08] MEDS: LOVENOX INJ 60 MG SYR SC SCH (21:30)
[2020-09-09] MEDS: SOLU-Medrol 40 MG VIAL IVP SCH ×4 (03:30→20:32)
[2020-09-09] MEDS: ASCORBIC ACID INJ MULTI-DOSE VIAL 1,500 MG in NS 100 ML IV 100 ML IV SCH ×4 (03:30→20:29)
[2020-09-09 05:43] LABS: ALANINE AMINOTRANSFERASE 52 Units/L (12-78); ALBUMIN 2.8 g/dL (3.4-5.0); ALKALINE PHOSPHATASE 85 Units/L (46-116); ASPARTATE AMINO TRANSFERASE 58 Units/L (15-37); BLOOD UREA NITROGEN 13 mg/dL (7-18); CALCIUM 8.3 mg/dL (8.5-10.1); CARBON DIOXIDE 29.5 mmol/L (21-32); CHLORIDE 99 mmol/L (98-107); COR CA(FOR HYPOALB) 9.3 mg/dL (8.5-10.1); COR NA(FOR HYPERGLY) 137 mmol/L (136-145); CREATININE 0.78 mg/dL (0.55-1.02); SODIUM 136 mmol/L (136-145); TOTAL PROTEIN 6.4 g/dL (6.4-8.2); eGFR NON BLACK RACES > 60 (>60)
[2020-09-09] MEDS ORDERED: VITAMIN D (1.25MG) PO SCH (09:00)
[2020-09-09] MEDS ORDERED: VITAMIN A PO SCH (09:00)
[2020-09-09] MEDS: LOVENOX INJ 60 MG SYR SC SCH ×2 (09:25→20:42)
[2020-09-09] MEDS: LIPITOR TAB 80 MG PO SCH (09:25)
[2020-09-09] MEDS: PEPCID TAB 40 MG PO SCH ×2 (09:25→20:30)
[2020-09-09] MEDS: THIAMINE HCL INJ IVP SCH ×2 (09:26→20:30)
[2020-09-09] MEDS: TRICOR TAB 160 MG PO SCH (09:26)
[2020-09-09] MEDS: ZINC SULFATE PO SCH ×2 (09:27→20:32)
[2020-09-09] MEDS: VIBRAMYCIN 100 MG in D5W 250 ML IV 250 ML IV SCH ×2 (09:30→20:32)
[2020-09-09] MEDS ORDERED: ROCEPHIN 1 GRAM IV PREMIX 1 G/50 ML IV.SOLN. IV SCH (09:37)
[2020-09-09] MEDS: BROVANA IN SCH ×2 (09:43→21:07)
[2020-09-09] MEDS: PULMICORT NEB TX 0.5 MG NEB SCH ×2 (09:52→21:13)
[2020-09-09] MEDS: CARAFATE PO SCH ×3 (12:11→21:21)
[2020-09-09] MEDS: PLAVIX PO SCH (12:11)
[2020-09-09] MEDS: PROTONIX TAB 40 MG PO SCH (12:11)
[2020-09-09] MEDS: TOPROL XL PO SCH (12:12)
[2020-09-09] MEDS: ZyrTEC TAB 10 MG PO SCH (12:12)
[2020-09-09] MEDS: ULTRAM PO PRN (14:54)
[2020-09-09] MEDS: PHARMACY CONSULT - IVERMECTIN XX SCH (17:00)
[2020-09-09] MEDS: NS 1000 ML 1,000 ML IV SCH (18:21)
[2020-09-09] MEDS: IVERMECTIN PO SCH (20:29)
[2020-09-09] MEDS: MELATONIN PO SCH (20:30)
[2020-09-10] MEDS: ASCORBIC ACID INJ MULTI-DOSE VIAL 1,500 MG in NS 100 ML IV 100 ML IV SCH ×4 (02:37→20:44)
[2020-09-10] MEDS: SOLU-Medrol 40 MG VIAL IVP SCH ×4 (02:37→20:45)
[2020-09-10] MEDS: CARAFATE PO SCH ×3 (05:04→21:11)
[2020-09-10 05:25] LABS: BASOPHILS % (AUTO) 0.1 % (0.2-1.0); HEMATOCRIT 36.2 % (36.0-47.0); LYMPHOCYTES # (AUTO) 0.4 X10^3/uL (1.3-2.9); LYMPHOCYTES % (AUTO) 10.7 % (21.0-51.0); MEAN CORPUSCULAR HEMOGLOBIN 32.1 pg (27.0-34.0); MEAN CORPUSCULAR HGB CONC 35.3 g/dL (33.0-35.0); MEAN PLATELET VOLUME 8.4 fL (7.4-11.0); MONOCYTES # (AUTO) 0.2 x10^3/uL (0.3-0.8); MONOCYTES % (AUTO) 4.7 % (0.0-13.0); NEUTROPHILS # (AUTO) 3.5 x10^3/uL (2.2-4.8); NEUTROPHILS % (AUTO) 84.5 % (42.0-75.0); PLATELET COUNT 187 X10^3/uL (150.0-450.0); RED BLOOD COUNT 3.98 X10^6/uL (3.5-5.4); RED CELL DISTRIBUTION WIDTH 12.8 % (11.6-16.5); WHITE BLOOD COUNT 4.2 X10^3/uL (3.6-10.0)
[2020-09-10 05:49] LABS: HEMOGLOBIN 12.8 g/dL (12.0-16.0)
[2020-09-10 05:52] LABS: ALANINE AMINOTRANSFERASE 41 Units/L (12-78); ALBUMIN 2.7 g/dL (3.4-5.0); ALKALINE PHOSPHATASE 75 Units/L (46-116); ASPARTATE AMINO TRANSFERASE 38 Units/L (15-37); BLOOD UREA NITROGEN 20 mg/dL (7-18); CALCIUM 8.3 mg/dL (8.5-10.1); CARBON DIOXIDE 27.1 mmol/L (21-32); CHLORIDE 99 mmol/L (98-107); COR CA(FOR HYPOALB) 9.3 mg/dL (8.5-10.1); COR NA(FOR HYPERGLY) 136 mmol/L (136-145); CREATININE 0.91 mg/dL (0.55-1.02); SODIUM 135 mmol/L (136-145); eGFR NON BLACK RACES > 60 (>60)
--- NOTE | 2020-09-10 06:50 | RAD ---
HISTORYFollow-up pneumoniaSTUDYChest AP [id number]/03/2021FINDINGSHeart is minimally enlarged. No congestive heart failure is noted . Bilateral interstitial and peripheral left midlung ground-glass infiltrates are unchanged. No pleur al effusions are identified. Bony thorax is unremarkable.IMPRESSIONNo change mild diffuse bilateral i nterstitial lung changes superimposed on which are ground-glass infiltrates peripherally in the left midlung. Continued follow-up until complete resolution is recommended.Electronically signed by: OLIVIER ANGUIANO (Sep 10, 2020 06:48:43)
[2020-09-10] MEDS: LOVENOX INJ 60 MG SYR SC SCH ×2 (08:54→20:46)
[2020-09-10] MEDS: LIPITOR TAB 80 MG PO SCH (08:54)
[2020-09-10] MEDS: PEPCID TAB 40 MG PO SCH ×2 (08:55→20:43)
[2020-09-10] MEDS: PLAVIX PO SCH (08:55)
[2020-09-10] MEDS: TRICOR TAB 160 MG PO SCH (08:56)
[2020-09-10] MEDS: THIAMINE HCL INJ IVP SCH ×2 (08:56→20:46)
[2020-09-10] MEDS: TOPROL XL PO SCH (08:56)
[2020-09-10] MEDS: VIBRAMYCIN 100 MG in D5W 250 ML IV 250 ML IV SCH ×2 (08:56→21:10)
[2020-09-10] MEDS: PROTONIX TAB 40 MG PO SCH (08:56)
[2020-09-10] MEDS: VITAMIN D3 125 mcg (5,000 UNITS) PO SCH (08:57)
[2020-09-10] MEDS: VITAMIN A PO SCH (08:57)
[2020-09-10] MEDS: ZESTRIL TAB 5 MG PO SCH (08:57)
[2020-09-10] MEDS: ZINC SULFATE PO SCH ×2 (08:57→20:43)
[2020-09-10] MEDS: ZyrTEC TAB 10 MG PO SCH (08:57)
[2020-09-10] MEDS: BROVANA IN SCH ×2 (10:00→20:00)
[2020-09-10] MEDS: PULMICORT NEB TX 0.5 MG NEB SCH ×2 (10:00→20:00)
[2020-09-10] MEDS: ULTRAM PO PRN (11:45)
[2020-09-10] MEDS ORDERED: KLOR-CON PO PRN (13:47)
[2020-09-10] MEDS ORDERED: POTASSIUM CHL 40 MEQ/NS 0.45% 500 ML IV PRN (13:47)
[2020-09-10] MEDS ORDERED: K-RIDER 10 MEQ/NS 100 ML 10 MEQ/100 ML BAG IV PRN (13:47)
[2020-09-10] MEDS ORDERED: MICRO K EXTEN CAP 10 MEQ PO PRN (13:47)
[2020-09-10] MEDS ORDERED: MAGNESIUM SULFATE 1 GRAM/100 mL PREMIX 1 GM/100 ML BAG IV PRN (13:47)
[2020-09-10] MEDS ORDERED: POTASSIUM CHLORIDE LIQ 20 MEQ UDC PO PRN (13:47)
[2020-09-10] MEDS ORDERED: K-DUR TAB 20 MEQ PO PRN (13:47)
[2020-09-10] MEDS ORDERED: POTASSIUM CHL 60 MEQ/NS 0.45% 500 ML IV PRN (13:47)
[2020-09-10] MEDS: NS 1000 ML 1,000 ML IV SCH (17:57)
[2020-09-10] MEDS: IVERMECTIN PO SCH (20:45)
[2020-09-10] MEDS: MELATONIN PO SCH (20:48)
[2020-09-11] MEDS: SOLU-Medrol 40 MG VIAL IVP SCH ×2 (03:03→09:00)
[2020-09-11] MEDS: ASCORBIC ACID INJ MULTI-DOSE VIAL 1,500 MG in NS 100 ML IV 100 ML IV SCH ×4 (03:03→20:45)
[2020-09-11] MEDS: CARAFATE PO SCH ×3 (05:31→22:54)
[2020-09-11 05:43] LABS: ALANINE AMINOTRANSFERASE 33 Units/L (12-78); ALBUMIN 2.5 g/dL (3.4-5.0); ALKALINE PHOSPHATASE 67 Units/L (46-116); ASPARTATE AMINO TRANSFERASE 29 Units/L (15-37); BLOOD UREA NITROGEN 26 mg/dL (7-18); CARBON DIOXIDE 27.7 mmol/L (21-32); CHLORIDE 103 mmol/L (98-107); COR CA(FOR HYPOALB) 9.2 mg/dL (8.5-10.1); COR NA(FOR HYPERGLY) 141 mmol/L (136-145); CREATININE 0.89 mg/dL (0.55-1.02); SODIUM 140 mmol/L (136-145); TOTAL PROTEIN 5.6 g/dL (6.4-8.2); eGFR NON BLACK RACES > 60 (>60)
[2020-09-11] MEDS: THIAMINE HCL INJ IVP SCH ×2 (09:01→20:47)
[2020-09-11] MEDS: VIBRAMYCIN 100 MG in D5W 250 ML IV 250 ML IV SCH ×2 (09:04→20:00)
[2020-09-11] MEDS: TOPROL XL PO SCH (09:05)
[2020-09-11] MEDS: LIPITOR TAB 80 MG PO SCH (09:05)
[2020-09-11] MEDS: ZESTRIL TAB 5 MG PO SCH (09:05)
[2020-09-11] MEDS: ZINC SULFATE PO SCH ×2 (09:05→22:54)
[2020-09-11] MEDS: PROTONIX TAB 40 MG PO SCH (09:05)
[2020-09-11] MEDS: PEPCID TAB 40 MG PO SCH ×2 (09:05→20:46)
[2020-09-11] MEDS: ULTRAM PO PRN ×2 (09:06→20:47)
[2020-09-11] MEDS: ZyrTEC TAB 10 MG PO SCH (09:07)
[2020-09-11] MEDS: PLAVIX PO SCH (09:07)
[2020-09-11] MEDS: VITAMIN D3 125 mcg (5,000 UNITS) PO SCH (09:10)
[2020-09-11] MEDS: VITAMIN A PO SCH (09:10)
[2020-09-11] MEDS: TRICOR TAB 160 MG PO SCH (09:10)
[2020-09-11] MEDS: PHARMACY CONSULT - IVERMECTIN XX SCH (09:11)
[2020-09-11] MEDS: LOVENOX INJ 60 MG SYR SC SCH (09:29)
[2020-09-11] MEDS: BROVANA IN SCH ×2 (10:00→21:00)
[2020-09-11] MEDS: PULMICORT NEB TX 0.5 MG NEB SCH ×2 (10:00→21:00)
--- NOTE | 2020-09-11 11:12 | RAD ---
HISTORYABD PAINSTUDYACUTE ABDOMEN x-ray SERIES, two views abdomen and one view chestCOMPARISONChest x-ray 09/10/2020 and abdomen x-ray 06/11/2019FINDINGSAbnormal interstitial and ground-glass densities are suspected in the left lung and right lung base. Findings could be due to pneumonia but there may be a degree of chronic interstitial lung disease. Probable COPD is present. Heart is normal in size. Calcified granuloma is seen in the right midlung. Probable small pleural effusions are present, unchanged.No free intraperitoneal air is seen. Vascular stents are seen in the iliac regions. No abnormalities are seen with the bowel gas pattern. Prior cholecystectomy.IMPRESSIONNo abnormalities are seen with the bowel gas pattern.Persistent bilateral lung infiltrates could be due to pneumonia, but an underlying degree of chronic interstitial lung disease is not excluded.Electronically signed by: Lamberto Vaughn (Sep 11, 2020 11:10:19)
[2020-09-11 15:03] LABS: ABG BASE EXCESS -0.5 mmol/L (-2.0-2.0); ABG HCO3 22.9 mmol/L (22-26)
[2020-09-11] MEDS: SOLU-Medrol 125 MG VIAL IVP SCH ×2 (15:05→20:46)
[2020-09-11 16:43] LABS: CKMB % 1.7 % (<4); CREATINE KINASE MB 2.7 ng/mL (0-4.0); TROPONIN I 0.03 ng/mL (0-1.5)
[2020-09-11 17:00] LABS: BASOPHILS % (AUTO) 0.1 % (0.2-1.0); HEMATOCRIT 25.4 % (36.0-47.0); HEMOGLOBIN 8.9 g/dL (12.0-16.0); LYMPHOCYTES # (AUTO) 0.7 X10^3/uL (1.3-2.9); LYMPHOCYTES % (AUTO) 4.1 % (21.0-51.0); MEAN CORPUSCULAR HGB CONC 34.9 g/dL (33.0-35.0); MEAN CORPUSCULAR VOLUME 91.5 fL (80.0-100.0); MEAN PLATELET VOLUME 8.9 fL (7.4-11.0); MONOCYTES # (AUTO) 0.7 x10^3/uL (0.3-0.8); NEUTROPHILS # (AUTO) 16.1 x10^3/uL (2.2-4.8); NEUTROPHILS % (AUTO) 91.8 % (42.0-75.0); PLATELET COUNT 369 X10^3/uL (150.0-450.0); RED BLOOD COUNT 2.78 X10^6/uL (3.5-5.4); RED CELL DISTRIBUTION WIDTH 12.9 % (11.6-16.5); WHITE BLOOD COUNT 17.5 X10^3/uL (3.6-10.0)
[2020-09-11 17:12] LABS: PLATELET MORPHOLOGY COMMENT NORMAL (NORMAL)
[2020-09-11] MEDS: NS 1000 ML 1,000 ML IV SCH (17:24)
[2020-09-11] MEDS: CYTOTEC PO SCH ×2 (17:25→22:53)
[2020-09-11] MEDS: IVERMECTIN PO SCH (20:45)
[2020-09-11] MEDS: MELATONIN PO SCH (20:46)
[2020-09-11] MEDS ORDERED: NS 100 ML IV 100 ML ONE (21:54)
[2020-09-11 22:05] LABS: CREATINE KINASE MB 3.2 ng/mL (0-4.0); TROPONIN I 0.02 ng/mL (0-1.5)
[2020-09-12] MEDS: ASCORBIC ACID INJ MULTI-DOSE VIAL 1,500 MG in NS 100 ML IV 100 ML IV SCH (03:45)
[2020-09-12] MEDS: SOLU-Medrol 125 MG VIAL IVP SCH (03:45)
[2020-09-12 04:19] VITALS: BP 115/56
[2020-09-12] MEDS: CARAFATE PO SCH (05:07)
[2020-09-12 05:09] LABS: BASOPHILS # (AUTO) 0.1 X10^3/uL (0.0-0.1); BASOPHILS % (AUTO) 0.4 % (0.2-1.0); HEMOGLOBIN 9.9 g/dL (12.0-16.0); LYMPHOCYTES # (AUTO) 0.9 X10^3/uL (1.3-2.9); LYMPHOCYTES % (AUTO) 3.5 % (21.0-51.0); MEAN CORPUSCULAR HEMOGLOBIN 30.3 pg (27.0-34.0); MEAN CORPUSCULAR HGB CONC 34.2 g/dL (33.0-35.0); MEAN CORPUSCULAR VOLUME 88.7 fL (80.0-100.0); MEAN PLATELET VOLUME 9.6 fL (7.4-11.0); MONOCYTES # (AUTO) 1.5 x10^3/uL (0.3-0.8); NEUTROPHILS # (AUTO) 23.2 x10^3/uL (2.2-4.8); NEUTROPHILS % (AUTO) 90.1 % (42.0-75.0); PLATELET COUNT 294 X10^3/uL (150.0-450.0); RED BLOOD COUNT 3.27 X10^6/uL (3.5-5.4); RED CELL DISTRIBUTION WIDTH 13.8 % (11.6-16.5); WHITE BLOOD COUNT 25.8 X10^3/uL (3.6-10.0)
[2020-09-12 05:48] LABS: ALBUMIN 2.3 g/dL (3.4-5.0); CALCIUM 7.8 mg/dL (8.5-10.1); CARBON DIOXIDE 20.1 mmol/L (21-32); CKMB % 2.2 % (<4); COR CA(FOR HYPOALB) 9.2 mg/dL (8.5-10.1); CREATININE 2.54 mg/dL (0.55-1.02); TOTAL PROTEIN 4.9 g/dL (6.4-8.2); TROPONIN I 0.03 ng/mL (0-1.5)
[2020-09-12 05:58] LABS: CREATINE KINASE MB 14.4 ng/mL (0-4.0)
[2020-09-12 06:03] LABS: PLATELET MORPHOLOGY COMMENT NORMAL (NORMAL)
[2020-09-12] MEDS ORDERED: ATIVAN INJ 2 MG VIAL IVP PRN (07:00)
[2020-09-12] MEDS: BROVANA IN SCH (08:46)
[2020-09-12] MEDS: PULMICORT NEB TX 0.5 MG NEB SCH (08:53)
[2020-09-12] MEDS ORDERED: PROTONIX INJ 40 MG VIAL IVP SCH (09:00)
[2020-09-12] MEDS ORDERED: SOLU-Medrol 125 MG VIAL IVP SCH (09:00)
[2020-09-12] MEDS ORDERED: LINZESS PO SCH (09:00)
== END 2020-09-12 09:35 | disposition expired | DRG 208 ==
LOC: ER 12:39 → ICU 16:02
PROVIDERS: ADMIT Obstetrics & Gynecology Obstetrics; ATTEND Obstetrics & Gynecology Obstetrics
DX: I46.9 Cardiac arrest, cause unspecified; J12.82 Pneumonia due to coronavirus disease 2019; R94.31 Abnormal electrocardiogram [ECG] [EKG]; R26.89 Other abnormalities of gait and mobility; E78.2 Mixed hyperlipidemia; I25.10 Atherosclerotic heart disease of native coronary artery without angina pectoris; J44.9 Chronic obstructive pulmonary disease, unspecified; I10 Essential (primary) hypertension; U07.1 COVID-19